=== PATIENT | male | born 1965 | race Caucasian/White ===

== ENCOUNTER 2018-01-04 16:01 | Emergency (ER) | payer MEDICAID, OTHER ==
[2018-01-04] MEDS ORDERED: NS 500 ML IV ONE (16:51)
[2018-01-04] MEDS ORDERED: ASPIRIN 81 MG CHEWABLE TAB PO ONE (16:51)
--- NOTE | 2018-01-04 17:07 | CPEKG ---
Heart Rate: 62 RR Interval: 968 P-R Interval: 156 QRSD Interval: 90 QT Interval: 388 QTC Interval: 394 P [place]: 65 QRS [place]: 82 T Wave [place]: 13 EKG Severity - BORDERLINE ECG - EKG Impression: SINUS RHYTHM EKG Impression: BORDERLINE INFERIOR Q WAVES Electronically Signed By: Gisselle Varela 04-Jan-2018 21:11:53
--- NOTE | 2018-01-04 17:29 | EDPHY ---
H & P Time Seen by Provider: 01/04/18 16:35 HPI/ROS: HPI Chest pain. 52-year-old male by private vehicle with his . [place] This morning he developed what he describes as upper mid chest and lower neck pain described as an aching and cramping like sensation. He reports that the pain is worse with deep breathing and has some associated shortness of breath which she describes as mild. He reports that it increased throughout the day and radiated up through both sides of his neck. He reports when he got home to [place] he took some ibuprofen. He then came straight to the emergency department. By the time he came here the pain had mostly resolved but was still present at a low level. He had chest pain but of a different quality about 5 years ago. He states that he had a big workup with all of the "heart tests", these were negative and he was discharged from the hospital. No history of hyperlipidemia, diabetes, hypertension. He is not obese. He does not smoke. No significant family history of coronary artery disease. ROS: Constitutional: No fever, no chills. No weakness. Eyes: No discharge. No changes in vision. ENT: No sore throat. No nasal congestion or rhinorrhea. Respiratory: No cough. As above. Cardiac: As above, no palpitations. Gastrointestinal: No abdominal pain, no vomiting, no diarrhea. Genitourinary: No hematuria. No dysuria or increased frequency with urination. Musculoskeletal: No back pain. No neck pain. No myalgias or arthralgias. Skin: No rashes. Neurological: No headache. No focal weakness or altered sensation. Past medical history: No significant past medical history. Social history: Nonsmoker. Drinks alcohol socially. Currently here with his . Physical Exam: General Appearance: Alert, no distress. This patient is responding to questions appropriately and in full sentences. This patient appears well- hydrated and well-nourished. Eyes: Pupils equal and round no pallor or injection. No lid edema, erythema or injection. Respiratory: There are no retractions, lungs are clear to auscultation with good air movement bilaterally. Cardiovascular: Regular rate and rhythm. No murmur. Gastrointestinal: Abdomen is soft and nontender, no masses, bowel sounds normal. No focal tenderness at McBurney's point. No Thurman sign. Neurological: Motor sensory function is grossly intact. Cranial nerves are normal. Gait is normal. Skin: Warm and dry, no rashes. Musculoskeletal: Neck is supple and nontender. Extremities are symmetrical. All joints range without pain or impingement. Psychiatric: No agitation. No depression. Database: EKG: EKG time is 5:05 p.m.; EKG shows a narrow complex normal sinus rhythm with a ventricular rate of 62. Borderline inferior Q-waves noted. The [place], QRS, QT intervals are within normal limits. There are no ST-T wave changes indicative of ischemic or injury pattern. No evidence of right heart strain. Interpreted by me. Imaging: Chest x-ray AP portable; the cardiac mediastinal silhouette is unremarkable. No evidence of infiltrate or pneumothorax. No acute cardiopulmonary disease process noted. Interpreted by me. Procedures: Emergency department course: Triage vital signs reviewed and are unremarkable. The patient was given 324 mg chewed aspirin. EKG obtained and reviewed by myself. He currently describes having a mild chest discomfort at this time. The patient has a heart score of 2. This puts him in the low risk category. 6:10 p.m., patient re-evaluated. Resting comfortably at this time. He denies any chest discomfort. Results of his diagnostic testing as well as heart score discussed with him. His workup has been reassuring. I did discussed admission with him. He does not want to be admitted. He is requesting discharge. I discussed my concerns. The patient competently engages in shared decision making. They demonstrate capacitance to make decisions. He prefers to go home with his . I will provide him with follow-up to our cardiology group. I explained that it is important for him to see them on Sunday. He does not live far from the hospital and can easily return here if his symptoms return. Follow -up was thoroughly reviewed with him. Return to emergency department precautions discussed in detail. All of his questions were answered. He was discharged home in good condition with his . Differential Diagnosis: The differential diagnosis on this patient includes but is not limited to musculoskeletal chest pain, anxiety reaction, esophageal spasm. Acute coronary syndrome, pulmonary embolism, aortic dissection, myocarditis, pericarditis, pneumothorax unlikely. This represents a partial list of diagnoses considered. These considerations are based on history, physical exam, past history, reassessment and diagnostic testing. Smoking Status: Never smoked Constitutional: Initial Vital Signs Temperature (C) 36.6 C 01/04/18 16:07 Heart Rate 69 01/04/18 16:07 Respiratory Rate 16 01/04/18 16:07 Blood Pressure 140/95 H 01/04/18 16:07 O2 Sat (%) 97 01/04/18 16:07 O2 Delivery Mode Room Air Allergies/Adverse Reactions: No Known Allergies Allergy (Verified 01/04/18 16:10) Home Medications: Medication Instructions Recorded Cyanocobalamin [Vitamin B12 (*)] 1,000 mcg PO DAILY 05/25/12 Magnesium Oxide [Magnesium Oxide 400 mg PO DAILY 05/25/12 400 mg (*)] Acetaminophen [Tylenol 325mg (*)] 650 mg PO Q4 PRN #0 tab 05/26/12 Aspirin [Aspirin 81mg (*)] 81 mg PO DAILY #0 tab 05/26/12 Medical Decision Making - Diagnostics Imaging Results: Imaging Impressions Chest X-Ray 01/04/18 16:51 Impression: 1. No acute pulmonary disease. 2. Consider chest two views when the patient's medical condition permits. - Data Points Laboratory Results: Laboratory Results 01/04/18 17:05 01/04/18 17:05 01/04/18 01/04/18 01/04/18 17:09 17:05 17:05 WBC RBC Hgb Hct MCV MCH MCHC RDW Plt Count MPV Neut % (Auto) Lymph % (Auto) [place] % (Auto) Eos % (Auto) Baso % (Auto) Nucleat RBC Rel Count Absolute Neuts (auto) Absolute Lymphs (auto) Absolute Monos (auto) Absolute Eos (auto) Absolute Basos (auto) Absolute Nucleated RBC Immature Gran % Immature Gran # PT 12.6 SEC SEC (12.0-15.0) INR 0.92 (0.83-1.16) APTT 26.9 SEC SEC (23.0-38.0) D-Dimer < 0.27 ug/mLFEU ug/mLFEU (0.00-0.50) Sodium 138 mEq/L mEq/L (135-145) Potassium 4.2 mEq/L mEq/L (3.3-5.0) Chloride 106 mEq/L mEq/L (97-110) Carbon Dioxide 26 mEq/l mEq/l (22-31) Anion Gap 6 mEq/L L mEq/L (8-16) BUN 16 mg/dL mg/dL (7-23) Creatinine 0.9 mg/dL mg/dL (0.7-1.3) Estimated GFR > 60 Glucose 92 mg/dL mg/dL (70-100) Calcium 9.9 mg/dL mg/dL (8.5-10.4) POC Troponin I 0.00 ng/mL ng/mL (0.00-0.08) 01/04/18 17:05 WBC 10.36 10^3/uL H 10^3/uL (3.80-9.50) RBC 4.98 10^6/uL 10^6/uL (4.40-6.38) Hgb 15.4 g/dL g/dL (13.7-17.5) Hct 45.7 % % (40.0-51.0) MCV 91.8 fL fL (81.5-99.8) MCH 30.9 pg pg (27.9-34.1) MCHC 33.7 g/dL g/dL (32.4-36.7) RDW 12.8 % % (11.5-15.2) Plt Count 291 10^3/uL 10^3/uL (150-400) MPV 9.8 fL fL (8.7-11.7) Neut % (Auto) 70.3 % % (39.3-74.2) Lymph % (Auto) 17.7 % % (15.0-45.0) [place] % (Auto) 9.8 % % (4.5-13.0) Eos % (Auto) 1.3 % % (0.6-7.6) Baso % (Auto) 0.3 % % (0.3-1.7) Nucleat RBC Rel Count 0.0 % % (0.0-0.2) Absolute Neuts (auto) 7.29 10^3/uL H 10^3/uL (1.70-6.50) Absolute Lymphs (auto) 1.83 10^3/uL 10^3/uL (1.00-3.00) Absolute Monos (auto) 1.02 10^3/uL H 10^3/uL (0.30-0.80) Absolute Eos (auto) 0.13 10^3/uL 10^3/uL (0.03-0.40) Absolute Basos (auto) 0.03 10^3/uL 10^3/uL (0.02-0.10) Absolute Nucleated RBC 0.00 10^3/uL 10^3/uL (0-0.01) Immature Gran % 0.6 % % (0.0-1.1) Immature Gran # 0.06 10^3/uL 10^3/uL (0.00-0.10) PT INR APTT D-Dimer Sodium Potassium Chloride Carbon Dioxide Anion Gap BUN Creatinine Estimated GFR Glucose Calcium POC Troponin I Medications Given: Discontinued Medications Aspirin (Aspirin) 324 mg PO EDNOW ONE Stop: 01/04/18 16:52 Last Admin: 01/04/18 17:15 Dose: 324 mg Sodium Chloride (Ns) 500 mls @ 1,000 mls/hr IV EDNOW ONE PRN Reason: Protocol Stop: 01/04/18 17:20 Last Admin: 01/04/18 17:14 Dose: 500 mls Point of Care Test Results: Chemistry 01/04/18 17:09 POC Troponin I 0.00 ng/mL ng/mL (0.00-0.08) Departure - Departure Disposition: Home, Routine, Self-Care Clinical Impression: Chest discomfort Condition: Good Instructions: Chest Pain (ED) Additional Instructions: Read and follow provided instructions. Follow-up with Cardiology, Dr. Mark Anthony Lopez or 1 of his partners at [facility] on Sunday as discussed. He will have to call their office Sunday morning for appointment time. Explain this is for an emergency department follow-up. Return to the emergency department for return of chest pain, shortness of breath or other serious concerns. Referrals: Mark Anthony Lopez MD [Medical Doctor] - As per Instructions [facility] [Provider Group] - As per Instructions
[2018-01-04 17:35] LABS: INR 0.92 (0.83-1.16); PLATELET COUNT 291 10^3/uL (150-400); PROTIME(PATIENT) 12.6 SEC (12.0-15.0)
[2018-01-04 17:59] VITALS: BP 139/88
== END 2018-01-04 18:26 | disposition home or self-care (01) ==
DX: R07.89 Other chest pain (principal); E86.9 Volume depletion, unspecified; Z79.82 Long term (current) use of aspirin
CPT/HCPCS: 84484-PO